=== PATIENT | female | born 1990 | race Caucasian/White ===

== ENCOUNTER 2018-02-04 17:46 | Emergency (ER) | payer OTHER, SELFPAY ==
[2018-02-04 17:55] VITALS: BP 122/74; PULSE 80; RESP 20; TEMP 36.6; O2SAT 99; BMI 25.7
--- NOTE | 2018-02-04 17:56 | ED.GENADULT ---
HPI - General Adult <GEORGE Piña - Last Filed: 02/04/18 22:22> General Chief complaint: Blood/Body fluid exposure Stated complaint: POKED WITH AN ENDOFILE AT WORK Time Seen by Provider: 02/04/18 17:56 History of Present Illness HPI narrative: Healthy 27-year-old female here for complaint of accidental stick to her right thumb with a dental instrument that was used under direct canal on the patient. Patient states that the source patient has no known health problems or communicable diseases. She denies any complaints of pain or other symptoms. She was stuck earlier today accidentally while the instrument was being cleaned. She reports her tetanus is up-to-date. She has received all hepatitis B immunizations and she states that her last titer shows that she has a positive titer. No other concerns or complaints. Review of Systems <GEORGE Piña - Last Filed: 02/04/18 22:22> Constitutional Denies chills, Denies fever(s), Denies lethargy and Denies weakness Eyes Denies change in vision, Denies eye discharge, Denies irritation and Denies loss of vision ENT Ears, Nose, Mouth, and Throat: Denies change in voice, Denies neck pain and Denies sore throat Cardiovascular Denies chest pain, Denies irregular heart rhythm, Denies lightheadedness, Denies palpitations, Denies dyspnea, Denies dyspnea on exertion and Denies orthopnea Respiratory Denies cough, Denies dyspnea, Denies dyspnea on exertion and Denies wheezing Gastrointestinal Gastrointestinal: Denies abdominal pain, Denies change in bowel habits, Denies diarrhea, Denies nausea and Denies vomiting Genitourinary Denies hematuria, Denies flank pain, Denies urinary incontinence and Denies urinary urgency Musculoskeletal Denies neck pain Comments: Accidental needle stick to a right thumb Integumentary/Breasts Denies pruritus, Denies erythema, Denies rash and Denies wounds Neurologic Denies confusion, Denies loss of vision and Denies weakness Psychiatric Denies anxiety, Denies confusion, Denies depression, Denies homicidal ideation and Denies suicidal ideation Endocrine Denies palpitations Hematologic/Lymphatic Denies easy bruising Allergic/Immunologic Denies wheezing Exam <GEORGE Piña - Last Filed: 02/04/18 22:22> Initial Vital Signs Initial Vital Signs: Vital Signs Temperature 97.8 F 07/25/18 17:55 Pulse Rate 80 02/04/18 17:55 Respiratory Rate 20 02/04/18 17:55 Blood Pressure 122/74 H 02/04/18 17:55 Pulse Oximetry 99 02/04/18 17:55 Const General: cooperative and well developed Nutritional Appearance: well nourished Orientation: alert, awake, oriented x3 and not confused HENMT Mouth: oral mucosae normal and moist mucous membranes Eyes Conjunctivae: conjunctivae normal Sclera: sclerae normal Pupils: PERRL EOM: EOM intact bilaterally Resp Effort & Inspection: normal respiratory effort, able to speak in complete sentences, no respiratory distress and no use of accessory muscles Auscultation: clear to auscultation bilaterally, no rales, no rhonchi and no wheezes Cardio Rate: regular rate Rhythm: regular rhythm Heart Sounds: no click, no gallops, no murmurs and no rubs Pulses: normal peripheral pulses Skin General: no rashes or lesions noted, No jaundice and No petechiae Neuro General: alert, oriented x3, gait normal and no focal motor deficits Speech: speech normal Extrem Other: Right thumb with no signs of trauma or puncture wounds <Dodie Bellamy DO - Last Filed: 02/05/18 05:39> Initial Vital Signs Initial Vital Signs: Vital Signs Temperature 97.8 F 02/04/18 17:55 Pulse Rate 80 02/04/18 17:55 Respiratory Rate 20 02/04/18 17:55 Blood Pressure 122/74 H 02/04/18 17:55 Pulse Oximetry 99 02/04/18 17:55 Course <GEORGE Piña - Last Filed: 02/04/18 22:22> Orders Ordered: ED Orders 02/04/18 19:21 HIV 1 and 2 Antibody Stat Hepatitis Acute Panel Stat Hepatitis C Virus Antibody Stat Vital Signs - 8 hr 02/04/18 17:55 02/04/18 20:08 Temperature 97.8 F Pulse Rate 80 77 Respiratory Rate 20 16 Blood Pressure 122/74 H 126/70 H Pulse Oximetry 99 100 <Dodie Bellamy DO - Last Filed: 02/05/18 05:39> Orders Ordered: ED Orders 02/04/18 19:21 HIV 1 and 2 Antibody Stat Hepatitis Acute Panel Stat Hepatitis C Virus Antibody Stat Vital Signs - 8 hr 02/04/18 17:55 02/04/18 20:08 Temperature 97.8 F Pulse Rate 80 77 Respiratory Rate 20 16 Blood Pressure 122/74 H 126/70 H Pulse Oximetry 99 100 Medical Decision Making <GEORGE Piña - Last Filed: 02/04/18 22:22> MDM Narrative Medical decision making narrative: Low risk of contamination as instruments were part way through a being cleansed. Hepatitis titers and HIV titers were obtained here in the emergency room. Patient to follow up with primary care provider or with [facility] for further evaluation and treatment as need be when source information is obtained and also for results of her titers today. For any worsening symptoms return to the emergency room. Lab Data Lab Results 02/04/18 Range/Units 19:21 Hepatitis C Antibody Negative (NEGATIVE) s/c HIV 1&2 Antibody Negative (NEGATIVE) <Dodie Bellamy DO - Last Filed: 02/05/18 05:39> Lab Data Lab Results 02/04/18 Range/Units 19:21 Hepatitis C Antibody Negative (NEGATIVE) s/c HIV 1&2 Antibody Negative (NEGATIVE) Discharge Plan Departure Patient Disposition: Home, Self-Care Clinical Impression: Needlestick injury accident Discharge Date/Time: 02/04/18 20:13 Interventions: ED Discharge Assessment Last Done: 02/04/18 20:08 Instructions: DI for Accidental Exposure to Body Fluids Activity Restrictions/Additional Instructions: Hepatitis titers and HIV titers were obtained today. With information received today believe is low risk for spread or transmission of communicable disease. Follow up with her primary care provider or [facility] for further evaluation and treatment once source of information is obtained and are your results from today are back. For any worsening symptoms return to the emergency room. Referrals: [facility] [Provider Group] <Dodie Bellamy DO - Last Filed: 02/05/18 05:39> Cosign ED Attending Luisaature Attestation: I was immediately available in the department for consultation. Documentation has been reviewed. I agree with assessment and plan.
--- NOTE | 2018-02-04 18:18 | PC.NURSE ---
Pt works at [employer] in [place]. 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 Blood did come from the puncture site. No puncture site visible at this time. Pt brought paperwork from her office to be filled out and pt is filling out L&I paperwork at this time.
[2018-02-04 20:08] VITALS: BP 126/70; PULSE 77; RESP 16; O2SAT 100
[2018-02-04 21:06] LABS: HIV 1 and 2 Antibody NEGATIVE (NEGATIVE); Hep C Virus Ab w/Reflex Quant NEGATIVE s/c (NEGATIVE)
[2018-02-06 15:04] LABS: Hepatitis B Surf Ab Qualitativ Reactive (Nonreactive)
[2018-02-07 10:32] LABS: Hepatitis A Antibody IgM NONREACTIVE; Hepatitis Acute Panel Interp 0.01; Hepatitis B Core Antibody IgM NONREACTIVE; Hepatitis B Surface Antigen NONREACTIVE; Hepatitis C Antibody NONREACTIVE
== END 2018-02-04 20:13 | disposition home or self-care (01) ==
PROVIDERS: Emergency Provider Nurse Practitioner Family
DX: S61.031A Puncture wound without foreign body of right thumb without damage to nail, initial encounter (principal); W27.8XXA Contact with other nonpowered hand tool, initial encounter; Y99.0 Civilian activity done for income or pay
CPT/HCPCS: 36415; 80074; 86703; 86706; 86803; 99282; 99283

== ENCOUNTER 2018-04-24 22:36 | Emergency (ER) | payer OTHER, SELFPAY ==
[2018-04-24 22:53] VITALS: BP 137/76; PULSE 89; RESP 16; TEMP 36.9; O2SAT 100; BMI 25.7
[2018-04-24 23:21] LABS: Add Manual Diff / Slide Review NO; Basophils Percent Auto 0.5 % (0-2); Eosinophils Percent Auto 1.3 % (2-4); Hematocrit 41.1 % (36-46); Hemoglobin 13.8 g/dL (12.0-16.0); Lymphocytes Percent Auto 26.2 % (25-40); Mean Corpuscular HGB Conc 33.4 % (30-36); Mean Corpuscular Hemoglobin 28.9 PG (26-34); Mean Corpuscular Volume 86.4 fL (80-100); Monocytes Percent Auto 8.7 % (3-14); Neutrophils Absolute Auto 6900 /uL (3000-5900); Neutrophils Percent Auto 63.3 % (50-75); Platelet Count 247 X10^3/uL (150-400); Red Blood Cell Count 4.76 X10^6/uL (4.0-5.2); Red Cell Distribution Width 13.1 % (11.6-14.8); White Blood Cell Count 10.8 X10^3/uL (4.5-11.0)
[2018-04-24 23:22] LABS: Alanine Aminotransferase 23 IU/L (9-52); Albumin 4.5 g/dL (3.5-5.0); Albumin Globulin Ratio 1.7 (1.0-2.8); Alkaline Phosphatase 48 U/L (38-126); Aspartate Aminotransferase 29 IU/L (14-36); BUN Creatinine Ratio 18.3 (6-22); Bilirubin Total 0.3 mg/dL (0.2-1.3); Blood Urea Nitrogen 11 mg/dL (7-17); Calcium 9.4 mg/dL (8.4-10.2); Carbon Dioxide 27 mmol/L (22-32); Chloride 104 mmol/L (98-107); Estimated Glomerular Filt Rate > 60.0 mL/min (>60); Globulin 2.7 g/dL (1.7-4.1); Glucose 93 mg/dL (70-100); HEMOLYSIS < 15 (0-50); Potassium 3.4 mmol/L (3.4-5.1); Sodium 141 mmol/L (137-145); Total Protein 7.2 g/dL (6.3-8.2)
--- NOTE | 2018-04-24 23:55 | DI.US.S_ITS ---
PROCEDURE: US PELVIC COMPLETE INDICATIONS: POSITIVE HOME TEST; BLEEDING TECHNIQUE: Real-time scanning was performed of the pelvic organs, with image documentation. Additional endovaginal scanning was necessary due to incomplete visualization of the adnexal and endometrial structures by transabdominal scanning. COMPARISON: None. FINDINGS: Transabdominal scanning: Limited scanning through the kidneys shows no hydronephrosis. No pathologic free abdominal or pelvic fluid. Endovaginal scanning: Uterus: Uterus is normal in size at 8.1 x 3.9 x 4.9 cm. The endometrium measures 10.0 mm in combined thickness. No intrauterine identified. Ovaries: Right adnexa measures 2.8 x 2.0 x 2.8 cm and appears sonographically normal. Left adnexa measures 2.5 x 2.0 x 1.4 cm and appears sonographically normal. IMPRESSION: No source of bleeding identified. No intrauterine identified. Recommend correlation with beta hCG, close clinical observation and short-term followup ultrasound. Dictated by: Samara Manuel MD, PhD on 04/25/2018 at 9:30 Approved by: Samara Manuel MD, PhD on 04/25/2018 at 9:31
--- NOTE | 2018-04-24 23:57 | ED_ITS ---
HPI - General Chief complaint: OB/Uterine Contractions Stated complaint: 5 WKS SPOTTING Time Seen by Provider: 04/24/18 23:49 Source: patient Mode of arrival: ambulatory Limitations: no limitations History of Present Illness HPI Narrative: Patient is a 27-year-old female who presents with vaginal bleeding. She states that she is 5 and half weeks . This is her 1st she started having more than spotting today. Not going through more than 1 pad an hour. She has some mild cramping no significant pain. She denies any dizziness or lightheadedness. She actually has 2 negative urine dipped in the ED. Complaint: vaginal bleeding Related Data Allergies Allergy/AdvReac Type Severity Reaction Status Date / Time No Known Drug Allergies Allergy Verified 04/24/18 22:53 Review of Systems Review of Systems GENERAL: Denies chills, fatigue, malaise, fever, sweats, travel HEENT: Denies sinus pain, ear pain, sore throat, difficulty swallowing, neck pain RESPIRATORY: Denies dyspnea, cough, wheezing, hemoptysis, sputum. CARDIOVASCULAR: Denies chest pain, palpitations, orthopnea, edema GASTROINTESTINAL: Denies nausea, vomiting, abdominal pain, diarrhea, constipation, melena. : Denies dysuria, frequency, incontinence, hematuria, urinary retention, flank pain. 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 12 point review of systems is negative except for those stated above and HPI Exam Initial Vital Signs Initial Vital Signs: Vital Signs Temperature 98.4 F 04/24/18 22:53 Pulse Rate 89 04/24/18 22:53 Respiratory Rate 16 04/24/18 22:53 Blood Pressure 137/76 04/24/18 22:53 Pulse Oximetry 100 04/24/18 22:53 GENERAL: Well-appearing, well-nourished and in no acute distress. HEENT: Head atraumatic,EOMI, pupils reactive, face symmetric CARDIOVASCULAR: Regular rate and rhythm without murmurs, rubs or gallops. RESPIRATORY: Breath sounds equal bilaterally, no wheezes rales or rhonchi. ABDOMEN: Soft, nontender. Normoactive bowel sounds all 4 quadrants. No guarding or rebound. EXTREMITIES: Normal range of motion, no clubbing or edema. Neurovascularly intact NEUROLOGICAL: Alert and oriented x4.Normal gait and speech. SKIN: Warm, dry, no laceration, no petechiae, no rashes or lesions. Course Orders Ordered: ED Orders 04/24/18 23:00 ABO RH Type Stat Complete Blood Count AUTO DIFF Stat Comprehensive Metabolic Panel Stat HCG Quantitative Stat 04/24/18 23:55 US pelvic complete Stat Vital Signs - 8 hr 04/24/18 22:53 04/25/18 00:56 Temperature 98.4 F Pulse Rate 89 73 Respiratory Rate 16 16 Blood Pressure 137/76 Blood Pressure [Left Arm] 129/70 Pulse Oximetry 100 100 MDM - OB/Uterine Contractions Lab Data Attestation: I reviewed the patient's lab results. Result diagrams: 04/24/18 23:00 04/24/18 23:00 Lab Results 04/24/18 04/24/18 04/24/18 Range/Units 23:00 23:00 23:00 WBC 10.8 (4.5-11.0) X10^3/uL RBC 4.76 (4.0-5.2) X10^6/uL Hgb 13.8 (12.0-16.0) g/dL Hct 41.1 (36-46) % MCV 86.4 (80-100) fL MCH 28.9 (26-34) PG MCHC 33.4 (30-36) % RDW 13.1 (11.6-14.8) % Plt Count 247 (150-400) X10^3/uL Neut % (Auto) 63.3 (50-75) % Lymph % (Auto) 26.2 (25-40) % [place] % (Auto) 8.7 (3-14) % Eos % (Auto) 1.3 L (2-4) % Baso % (Auto) 0.5 (0-2) % Neut # (Auto) 6900 H (8635-9281) /uL Sodium 141 (137-145) mmol/L Potassium 3.4 (3.4-5.1) mmol/L Chloride 104 (98-107) mmol/L Carbon Dioxide 27 (22-32) mmol/L BUN 11 (7-17) mg/dL Creatinine 0.60 (0.52-1.04) mg/dL Estimated GFR > 60.0 (>60) mL/min BUN/Creatinine Ratio 18.3 (6-22) Glucose 93 (70-100) mg/dL Calcium 9.4 (8.4-10.2) mg/dL Total Bilirubin 0.3 (0.2-1.3) mg/dL AST 29 (14-36) IU/L ALT 23 (9-52) IU/L Alkaline Phosphatase 48 (38-126) U/L Total Protein 7.2 (6.3-8.2) g/dL Albumin 4.5 (3.5-5.0) g/dL Globulin 2.7 (1.7-4.1) g/dL Albumin/Globulin Ratio 1.7 (1.0-2.8) HCG, Quant 39.40 mIU/mL Blood Type 04/24/18 Range/Units 23:00 WBC (4.5-11.0) X10^3/uL RBC (4.0-5.2) X10^6/uL Hgb (12.0-16.0) g/dL Hct (36-46) % MCV (80-100) fL MCH (26-34) PG MCHC (30-36) % RDW (11.6-14.8) % Plt Count (150-400) X10^3/uL Neut % (Auto) (50-75) % Lymph % (Auto) (25-40) % [place] % (Auto) (3-14) % Eos % (Auto) (2-4) % Baso % (Auto) (0-2) % Neut # (Auto) (6494-4941) /uL Sodium (137-145) mmol/L Potassium (3.4-5.1) mmol/L Chloride (98-107) mmol/L Carbon Dioxide (22-32) mmol/L BUN (7-17) mg/dL Creatinine (0.52-1.04) mg/dL Estimated GFR (>60) mL/min BUN/Creatinine Ratio (6-22) Glucose (70-100) mg/dL Calcium (8.4-10.2) mg/dL Total Bilirubin (0.2-1.3) mg/dL AST (14-36) IU/L ALT (9-52) IU/L Alkaline Phosphatase (38-126) U/L Total Protein (6.3-8.2) g/dL Albumin (3.5-5.0) g/dL Globulin (1.7-4.1) g/dL Albumin/Globulin Ratio (1.0-2.8) HCG, Quant mIU/mL Blood Type O Positive Point of Care Testing Test Results Negative Urine Dip Bedside Urine Glucose Negative Bedside Urine Bilirubin - Negative Bedside Urine Ketone - Negative Urine Specific [place] 1.015 Bedside Urine Occult Blood +/- Bedside Urine pH 8.0 Bedside Urine Protein - Negative Bedside Urine Urobilinogen - Negative Bedside Urine Nitrite - Negative Bedside Urine Leukocytes - Negative Esterase Imaging Data Pelvic ultrasound: 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 The differential diagnosis includes very early , recent spontaneous or ectopic , follow up serial beta HCGs and ultrasound recommended for further evaluation. MDM Narrative Medical decision making narrative: Beta HCG is 39, very low for what patient thinks she is 5 weeks . Ultrasound also does not confirm any pole or gestational sac. I suspect spontaneous inevitable . Her abdomen remained soft and nontender do not suspect ectopic. I discussed all findings with the patient and spouse, Education has been performed regarding treatment plan, diagnosis, warning signs and symptoms and all concerns have been addressed. Verbally agree with and understood all of the above. Discharge Plan Departure Patient Disposition: Home Clinical Impression: , inevitable Discharge Date/Time: 04/25/18 01:24 Interventions: ED Discharge Assessment Last Done: 04/25/18 01:23 Instructions: Dealing With Miscarriage, DI for Miscarriage Activity Restrictions/Additional Instructions: *You have been diagnosed with likely inevitable *What to do: BHCG=39, extremely low, ultrasound did not show signs of . Will need repeat hCG and follow up next week with Ob *Continue to take medications as directed Tylenol or Motrin as directed if needed for pain or cramping *Follow up with your primary care provider in 2-3 days, call OB thing Friday morning to schedule follow-up appointment *Return to ER if you should have increasing pain, vaginal bleeding more than 1 pad an hour, dizziness, lightheadedness or any new, worsening or concerning symptoms Referrals: Rosendo Davis MD [Physician] -
[2018-04-25 00:56] VITALS: BP 129/70; PULSE 73; RESP 16; O2SAT 100
== END 2018-04-25 01:24 | disposition home or self-care (01) ==
PROVIDERS: Emergency Provider Emergency Medicine
DX: O03.9 Complete or unspecified spontaneous abortion without complication (principal); Z3A.01 Less than 8 weeks gestation of pregnancy
CPT/HCPCS: 36591; 76830; 76856; 80053; 81003; 81025; 84702; 85025; 86900; 86901; 99283; 99284

== ENCOUNTER 2018-09-16 23:57 | Emergency (ER) | payer OTHER, SELFPAY ==
[2018-09-17 00:09] VITALS: BP 118/70; PULSE 91; RESP 20; TEMP 36.7; O2SAT 98
[2018-09-17] MEDS: SODIUM CHLORIDE 0.9% 1,000 ML 1000 ML IV ×2 (00:40→01:50)
[2018-09-17 00:45] LABS: Add Manual Diff / Slide Review NO; Basophils Absolute Auto 100 /uL (0-100); Basophils Percent Auto 0.7 % (0-2); Eosinophils Absolute Auto 100 /uL (0-450); Eosinophils Percent Auto 0.7 % (2-4); Hematocrit 45.9 % (36-46); Hemoglobin 15.4 g/dL (12.0-16.0); Lymphocytes Absolute Auto 2300 /uL (1100-4500); Lymphocytes Percent Auto 15.4 % (25-40); Mean Corpuscular HGB Conc 33.6 % (30-36); Mean Corpuscular Hemoglobin 28.7 PG (26-34); Mean Corpuscular Volume 85.5 fL (80-100); Monocytes Absolute Auto 1200 /uL (0-900); Monocytes Percent Auto 7.6 % (3-14); Neutrophils Absolute Auto 11400 /uL (1500-7000); Neutrophils Percent Auto 75.6 % (50-75); Platelet Count 292 X10^3/uL (150-400); Red Blood Cell Count 5.37 X10^6/uL (4.0-5.2); Red Cell Distribution Width 13.3 % (11.6-14.8); White Blood Cell Count 15.1 X10^3/uL (4.5-11.0)
[2018-09-17 00:46] LABS: Alanine Aminotransferase 27 IU/L (9-52); Albumin 4.9 g/dL (3.5-5.0); Albumin Globulin Ratio 1.4 (1.0-2.8); Alkaline Phosphatase 61 U/L (38-126); Aspartate Aminotransferase 19 IU/L (14-36); Bilirubin Total 0.8 mg/dL (0.2-1.3); Blood Urea Nitrogen 12 mg/dL (7-17); Carbon Dioxide 22 mmol/L (22-32); Chloride 100 mmol/L (98-107); Estimated Glomerular Filt Rate > 60.0 mL/min (>60); Globulin 3.6 g/dL (1.7-4.1); Glucose 138 mg/dL (70-100); HEMOLYSIS 15 (0-50); Potassium 3.3 mmol/L (3.4-5.1); Sodium 136 mmol/L (137-145); Total Protein 8.5 g/dL (6.3-8.2)
--- NOTE | 2018-09-17 01:48 | ED.NAVMDI ---
HPI - Nausea/Vomiting/Diarrhea General Chief complaint: Nausea/Vomiting/Diarrhea Stated complaint: 7 weeks , dry heaving, not eating/drinking Time Seen by Provider: 09/17/18 01:48 Source: patient Mode of arrival: ambulatory Limitations: no limitations History of Present Illness HPI Narrative: The patient is , she is in her 1st trimester. She has Zofran at home. However, even with the Zofran she is vomiting frequently for the past 2 days. She has no fever. She denies diarrhea. She denies dizziness, but does feel weak. She denies abdominal pain. She has dysuria. She has no cramping and no vaginal bleeding. Related Data Allergies Allergy/AdvReac Type Severity Reaction Status Date / Time No Known Drug Allergies Allergy Verified 04/24/18 22:53 Review of Systems Review of Systems ROS Unobtainable: All systems reviewed & are unremarkable except as noted in HPI and below Constitutional Denies chills, Denies fever(s), Denies lethargy and Denies weakness Cardiovascular Denies chest pain, Denies irregular heart rhythm, Denies lightheadedness, Denies palpitations, Denies dyspnea, Denies dyspnea on exertion and Denies orthopnea Respiratory Denies cough, Denies dyspnea, Denies dyspnea on exertion and Denies wheezing Gastrointestinal Gastrointestinal: Denies abdominal pain, Denies change in bowel habits, Denies change in stool character, Denies diarrhea, Reports nausea and Reports vomiting Genitourinary Reports as per HPI and Denies dysuria Musculoskeletal Denies back pain Neurologic Denies weakness Endocrine Denies palpitations Allergic/Immunologic Denies wheezing [facility] Medical History No active medical problems (Acute) Surgical History No pertinent past surgical history (Acute) Social History Smoking Status: Never smoker additional social history: No social or home issues. Social History Smoking Status: Never smoker additional social history: No social or home issues. Exam Initial Vital Signs Initial Vital Signs: Vital Signs Temperature 98.0 F 09/17/18 00:09 Pulse Rate 91 H 09/17/18 00:09 Respiratory Rate 20 09/17/18 00:09 Blood Pressure 118/70 09/17/18 00:09 Pulse Oximetry 98 09/17/18 00:09 Const General: cooperative and well developed Nutritional Appearance: well nourished Orientation: alert, awake, oriented x3 and not confused Eyes Conjunctivae: conjunctivae normal (No icterus) Neck Neck: normal visual inspection, trachea midline, No lymphadenopathy, No midline deformity and No JVD Lymphatic: No lymphedema Resp Effort & Inspection: normal respiratory effort, able to speak in complete sentences, no respiratory distress and no use of accessory muscles Auscultation: clear to auscultation bilaterally, no rales, no rhonchi and no wheezes Cardio Rate: regular rate Rhythm: regular rhythm Heart Sounds: no click, no gallops, no murmurs and no rubs Pulses: normal peripheral pulses GI Inspection: non-distended Palpation: soft, no hepatosplenomegaly, No guarding, No pulsatile mass and No tender Auscultation: normal bowel sounds Back/Spine/Pelvis Back: No CVA tenderness Skin General: no rashes or lesions noted Course Course Narrative: The patient has received 2 L of IV fluids for hydration. She did receive IV Zofran. Lab evaluation was benign. She is feeling dramatically better after the IV fluids. She has been managed for hyperemesis gravidarum. She is referred back to her OB doctor tomorrow. Orders Ordered: ED Orders 09/17/18 00:35 Complete Blood Count AUTO DIFF Stat Comprehensive Metabolic Panel Stat Discontinued Medications Sodium Chloride (Normal Saline 0.9%) 1,000 mls @ 1,000 mls/hr IV BOLUS ONE Stop: 09/17/18 01:33 Last Infusion: 09/17/18 01:45 Dose: 1,000 mls/hr Admin: 09/17/18 00:40 Dose: 1,000 mls/hr Sodium Chloride (Normal Saline 0.9%) 1,000 mls @ 1,000 mls/hr IV BOLUS ONE Stop: 09/17/18 02:51 Last Infusion: 09/17/18 03:09 Dose: 1,000 mls/hr Admin: 09/17/18 01:50 Dose: 1,000 mls/hr Ondansetron HCl (Zofran) 4 mg IV NOW ONE Stop: 09/17/18 01:53 Last Admin: 09/17/18 02:06 Dose: 4 mg Vital Signs - 8 hr 09/17/18 03:44 Pulse Rate 72 Respiratory Rate 14 Blood Pressure 112/72 Pulse Oximetry 100 MDM - Nausea/Vomiting/Diarrhea Lab Data Result diagrams: 09/17/18 00:35 09/17/18 00:35 Lab Results 09/17/18 09/17/18 Range/Units 00:35 00:35 WBC 15.1 H (4.5-11.0) X10^3/uL RBC 5.37 H (4.0-5.2) X10^6/uL Hgb 15.4 (12.0-16.0) g/dL Hct 45.9 (36-46) % MCV 85.5 (80-100) fL MCH 28.7 (26-34) PG MCHC 33.6 (30-36) % RDW 13.3 (11.6-14.8) % Plt Count 292 (150-400) X10^3/uL Neut % (Auto) 75.6 H (50-75) % Lymph % (Auto) 15.4 L (25-40) % [place] % (Auto) 7.6 (3-14) % Eos % (Auto) 0.7 L (2-4) % Baso % (Auto) 0.7 (0-2) % Neut # (Auto) 38372 H (5555-9295) /uL Lymph # (Auto) 2300 (9417-2121) /uL [place] # (Auto) 1200 H (0-900) /uL Eos # (Auto) 100 (0-450) /uL Baso # (Auto) 100 (0-100) /uL Sodium 136 L (137-145) mmol/L Potassium 3.3 L (3.4-5.1) mmol/L Chloride 100 (98-107) mmol/L Carbon Dioxide 22 (22-32) mmol/L BUN 12 (7-17) mg/dL Creatinine 0.80 (0.52-1.04) mg/dL Estimated GFR > 60.0 (>60) mL/min BUN/Creatinine Ratio 15.0 (6-22) Glucose 138 H (70-100) mg/dL Calcium 10.0 (8.4-10.2) mg/dL Total Bilirubin 0.8 (0.2-1.3) mg/dL AST 19 (14-36) IU/L ALT 27 (9-52) IU/L Alkaline Phosphatase 61 (38-126) U/L Total Protein 8.5 H (6.3-8.2) g/dL Albumin 4.9 (3.5-5.0) g/dL Globulin 3.6 (1.7-4.1) g/dL Albumin/Globulin Ratio 1.4 (1.0-2.8) Urine Dip Bedside Urine Glucose Negative Bedside Urine Bilirubin - Negative Bedside Urine Ketone + 15 Urine Specific [place] 1.025 Bedside Urine Occult Blood - Negative Bedside Urine pH 6.0 Bedside Urine Protein +/- 15 Bedside Urine Urobilinogen - Negative Bedside Urine Nitrite - Negative Bedside Urine Leukocytes - Negative Esterase Discharge Plan Departure Patient Disposition: Home Clinical Impression: Hyperemesis gravidarum Discharge Date/Time: 09/17/18 03:27 Interventions: ED Discharge Assessment Last Done: 09/17/18 03:44 Instructions: Hyperemesis Gravidarum Activity Restrictions/Additional Instructions: Drink plenty of fluids. I would recommend a bland diet. Avoid foods that tend to make you nauseated. Zofran every 4 hr as needed for nausea. Follow-up with her doctor tomorrow as planned. Return here as needed.
[2018-09-17] MEDS: ONDANSETRON 4 MG/2 ML INJ IV (02:06)
[2018-09-17 03:44] VITALS: BP 112/72; PULSE 72; RESP 14; O2SAT 100
== END 2018-09-17 03:27 | disposition home or self-care (01) ==
PROVIDERS: Emergency Provider Emergency Medicine
DX: O21.0 Mild hyperemesis gravidarum (principal)
CPT/HCPCS: 36415; 36591; 80053; 81003; 85025; 96361; 96374; 99283; 99284; J2405

== ENCOUNTER → 2018-09-28 16:04 | Outpatient (CLI) | payer OTHER, SELFPAY ==
--- NOTE | 2018-09-28 | DI.US.S_ITS ---
PROCEDURE: US OB <= 14 WEEKS FETUS INDICATIONS: INITIAL SIZING AND DATING OUTSIDE/PRIOR DATING DATA: Last menstrual period (LMP): 07/29/18 LMP-based estimated date of delivery (MELISSA): 05/05/19 First dating scan (date and location): This study, 09/28/18. . Estimated date of delivery (MELISSA) from first dating scan: 05/07/19. TECHNIQUE: Real-time scanning was performed of the fetus and maternal pelvic organs, with image documentation. Endovaginal scanning was also performed to better visualize the fetus and maternal ovaries. COMPARISON: None. FINDINGS: Embryo: [place]-rump length 1.9 cm, 8 week 3 day gestation, heart rate 175 beats per minute. Measurement variability in dating: +/- 4 weeks by LMP, +/- 7 days by mean sac diameter (use before 6 weeks gestation if crown-rump length not able to be measured), +/- 5 days by crown-rump length (up to 8 weeks 6 days gestation), +/- 7 days by crown-rump length (up to 13 weeks 6 days gestation). Maternal organs: Ovaries normal considering gestational status. Limited images through the kidneys demonstrate no hydronephrosis. IMPRESSION: Early first trimester gestation, a weeks 3 days gestational age, delivery date projected to be centered on 05/07/19, plus or -5 days. Followup anatomic survey at approximately 21 weeks gestation is recommended. Dictated by: Kirill Rosen M.D. on 09/28/2018 at 16:28 Approved by: Kirill Rosen M.D. on 09/28/2018 at 16:30
== END ==
PROVIDERS: PCP Family Medicine; Visit Provider Family Medicine
DX: Z34.91 Encounter for supervision of normal pregnancy, unspecified, first trimester (principal); Z3A.08 8 weeks gestation of pregnancy
CPT/HCPCS: 76801

== ENCOUNTER 2018-09-28 16:53 | Emergency (ER) | payer OTHER, SELFPAY ==
[2018-09-28 17:03] VITALS: BP 122/86; PULSE 74; RESP 16; TEMP 37.2; O2SAT 99; BMI 26.4
--- NOTE | 2018-09-28 20:55 | ED.NAVMDI ---
HPI - Nausea/Vomiting/Diarrhea General Chief complaint: Nausea/Vomiting/Diarrhea Stated complaint: 8wks preg, not keeping food down Time Seen by Provider: 09/28/18 20:49 Source: patient Mode of arrival: ambulatory Limitations: no limitations History of Present Illness HPI Narrative: Patient is a at approximately 8 weeks EGA. Has a known IUP which she reported. Had an ultrasound this morning at her primary doctor's office for dating. States that since she has become she has had nausea and vomiting. Has Zofran at home which she has run out of iris she states it was not helping. Has been taking Reglan for the past week without much improvement either. Vomited multiple times in the waiting room no vaginal bleeding. No abdominal pain. No loss of fluid. Related Data Previous Rx's Medication Instructions Recorded promethazine 25 mg PO Q4-6H PRN #14 tab 09/29/18 Allergies Allergy/AdvReac Type Severity Reaction Status Date / Time No Known Drug Allergies Allergy Verified 09/28/18 17:03 Review of Systems Constitutional Denies fever(s) and Denies headache(s) ENT Ears, Nose, Mouth, and Throat: Denies headache(s) Cardiovascular Denies chest pain and Denies dyspnea Respiratory Denies dyspnea Gastrointestinal Gastrointestinal: Denies abdominal pain, Denies change in stool character, Reports nausea and Reports vomiting Genitourinary Denies dysuria and Denies urinary urgency Musculoskeletal Denies myalgias and Denies arthralgias Integumentary/Breasts Denies rash Neurologic Denies headache(s) Hematologic/Lymphatic Denies easy bleeding and Denies easy bruising PFSH Medical History No active medical problems (Acute) Surgical History No pertinent past surgical history (Acute) Social History Smoking Status: Never smoker additional social history: No social or home issues. Social History Smoking Status: Never smoker additional social history: No social or home issues. Exam Initial Vital Signs Initial Vital Signs: Vital Signs Temperature 98.9 F 09/28/18 17:03 Pulse Rate 74 09/28/18 17:03 Respiratory Rate 16 09/28/18 17:03 Blood Pressure 122/86 09/28/18 17:03 Pulse Oximetry 99 09/28/18 17:03 Const General: cooperative, healthy appearing, comfortable, well developed, well groomed and No acute distress Orientation: alert, awake and oriented x3 Resp Effort & Inspection: normal respiratory effort Cardio Rate: regular rate Rhythm: regular rhythm Skin Lesions: no lesions Rashes: no rashes Neuro General: alert, awake and oriented x3 Extrem General: normal to inspection and capillary refill normal Psych Appearance: grossly normal and well kempt Course Orders Ordered: ED Orders 09/28/18 20:55 Complete Blood Count AUTO DIFF Stat Comprehensive Metabolic Panel Stat Lipase Stat 09/28/18 22:20 Urine Culture Stat Urine Microscopic Stat Promethazine HCl (Phenergan 25 Mg Prepack) 1 bottle MISC SEEINSTR ONE Stop: 09/29/18 00:15 Discontinued Medications Sodium Chloride (Normal Saline 0.9%) 1,000 mls @ 1,000 mls/hr IV BOLUS ONE Stop: 09/28/18 21:54 Last Infusion: 09/28/18 21:42 Dose: 0 mls/hr Admin: 09/28/18 20:59 Dose: 1,000 mls/hr Sodium Chloride (Normal Saline 0.9%) 1,000 mls @ 1,000 mls/hr IV BOLUS ONE Stop: 09/28/18 21:55 Last Infusion: 09/28/18 22:45 Dose: 0 mls/hr Admin: 09/28/18 21:44 Dose: 1,000 mls/hr Ondansetron HCl (Zofran) 4 mg IV NOW ONE Stop: 09/28/18 20:57 Last Admin: 09/28/18 20:59 Dose: 4 mg Promethazine HCl (Phenergan) 25 mg PO NOW ONE Stop: 09/28/18 21:59 Last Admin: 09/28/18 23:46 Dose: 25 mg Vital Signs - 8 hr 09/28/18 17:03 09/28/18 21:00 09/28/18 22:21 Temperature 98.9 F Pulse Rate 74 88 68 Respiratory Rate 16 14 16 Blood Pressure 122/86 Blood Pressure [Left Arm] 138/80 120/67 Pulse Oximetry 99 99 100 09/28/18 23:00 09/29/18 00:00 Temperature Pulse Rate 72 85 Respiratory Rate 16 16 Blood Pressure Blood Pressure [Left Arm] 102/61 105/61 Pulse Oximetry 100 100 MDM - Nausea/Vomiting/Diarrhea Lab Data Attestation: I reviewed the patient's lab results. Result diagrams: 09/28/18 20:55 09/28/18 20:55 Lab Results 09/28/18 09/28/18 09/28/18 Range/Units 20:55 20:55 22:20 WBC 14.6 H (4.5-11.0) X10^3/uL RBC 4.99 (4.0-5.2) X10^6/uL Hgb 14.4 (12.0-16.0) g/dL Hct 42.8 (36-46) % MCV 85.8 (80-100) fL MCH 28.9 (26-34) PG MCHC 33.6 (30-36) % RDW 13.1 (11.6-14.8) % Plt Count 259 (150-400) X10^3/uL Neut % (Auto) 73.8 (50-75) % Lymph % (Auto) 18.1 L (25-40) % [place] % (Auto) 7.3 (3-14) % Eos % (Auto) 0.2 L (2-4) % Baso % (Auto) 0.6 (0-2) % Neut # (Auto) 99436 H (1259-0680) /uL Lymph # (Auto) 2600 (5560-8729) /uL [place] # (Auto) 1100 H (0-900) /uL Eos # (Auto) 0 (0-450) /uL Baso # (Auto) 100 (0-100) /uL Sodium 136 L (137-145) mmol/L Potassium 3.4 (3.4-5.1) mmol/L Chloride 101 (98-107) mmol/L Carbon Dioxide 17 L (22-32) mmol/L BUN 10 (7-17) mg/dL Creatinine 0.60 (0.52-1.04) mg/dL Estimated GFR > 60.0 (>60) mL/min BUN/Creatinine Ratio 16.7 (6-22) Glucose 75 (70-100) mg/dL Calcium 9.6 (8.4-10.2) mg/dL Total Bilirubin 0.8 (0.2-1.3) mg/dL AST 22 (14-36) IU/L ALT 25 (9-52) IU/L Alkaline Phosphatase 47 (38-126) U/L Total Protein 8.2 (6.3-8.2) g/dL Albumin 4.7 (3.5-5.0) g/dL Globulin 3.5 (1.7-4.1) g/dL Albumin/Globulin Ratio 1.3 (1.0-2.8) Lipase 411 H (23-300) U/L Urine RBC 0-1/hpf (0-5/HPF) Urine WBC 0-1/hpf (0-5/HPF) Ur Squamous Epith Cells 1-5 /hpf Urine Bacteria Many (>30) H (None) Urine Mucus 1+ H (Negative) Ur Culture Indicated? Cult not indicated Urine Dip Bedside Urine Glucose Negative Bedside Urine Bilirubin - Negative Bedside Urine Ketone +++ 80 Urine Specific [place] 1.030 Bedside Urine Occult Blood - Negative Bedside Urine pH 6.0 Bedside Urine Protein + 30 Bedside Urine Urobilinogen +/- 1mg Bedside Urine Nitrite - Negative Bedside Urine Leukocytes - Negative Esterase MDM Narrative Medical decision making narrative: White count of 14 however no signs of infection. I suspect that this is secondary to a stress response from all the vomiting. She does have bacteria in the urine however no signs of a urinary tract infection. The urine was cultured. Will wait on the culture results before treating with any antibiotics. I did discuss this with the patient who expressed understanding and agreement. She was given Zofran through the IV and 2 L of fluid. She states she did feel somewhat better. She was able to hold down oral Phenergan. She states that this really did not help much of her nausea but has not vomited for several hours since being back in the emergency department. I informed her that these medications are more to help her with the vomiting and may not get rid of the nausea completely. Will send home with prescription for Phenergan. Informed her to contact her primary doctor for follow-up. She was given return precautions. She expressed understanding and agreement with plan. Discharge Plan Departure Patient Disposition: Home Clinical Impression: Hyperemesis gravidarum Instructions: DI for Hyperemesis Gravidarum Activity Restrictions/Additional Instructions: Continue to take small amounts of fluid over a long period of time. Contact your OB provider for follow-up. Return to the emergency department for any new or worsening symptoms Prescriptions: New promethazine 25 mg tablet 25 mg PO Q4-6H PRN (Reason: nausea and vomiting) Qty: 14 RF: 0 Referrals: Rosendo Davis MD [Primary Care Provider] -
[2018-09-28] MEDS: ONDANSETRON 4 MG/2 ML INJ IV (20:59)
[2018-09-28] MEDS: SODIUM CHLORIDE 0.9% 1,000 ML 1000 ML IV ×2 (20:59→21:44)
[2018-09-28 21:00] VITALS: BP 138/80; PULSE 88; RESP 14; O2SAT 99
[2018-09-28 21:02] LABS: Add Manual Diff / Slide Review NO; Basophils Absolute Auto 100 /uL (0-100); Basophils Percent Auto 0.6 % (0-2); Eosinophils Absolute Auto 0 /uL (0-450); Eosinophils Percent Auto 0.2 % (2-4); Hematocrit 42.8 % (36-46); Hemoglobin 14.4 g/dL (12.0-16.0); Lymphocytes Absolute Auto 2600 /uL (1100-4500); Lymphocytes Percent Auto 18.1 % (25-40); Mean Corpuscular HGB Conc 33.6 % (30-36); Mean Corpuscular Hemoglobin 28.9 PG (26-34); Mean Corpuscular Volume 85.8 fL (80-100); Monocytes Absolute Auto 1100 /uL (0-900); Monocytes Percent Auto 7.3 % (3-14); Neutrophils Absolute Auto 10800 /uL (1500-7000); Neutrophils Percent Auto 73.8 % (50-75); Platelet Count 259 X10^3/uL (150-400); Red Blood Cell Count 4.99 X10^6/uL (4.0-5.2); Red Cell Distribution Width 13.1 % (11.6-14.8); White Blood Cell Count 14.6 X10^3/uL (4.5-11.0)
[2018-09-28 21:14] LABS: Alanine Aminotransferase 25 IU/L (9-52); Albumin 4.7 g/dL (3.5-5.0); Albumin Globulin Ratio 1.3 (1.0-2.8); Alkaline Phosphatase 47 U/L (38-126); Aspartate Aminotransferase 22 IU/L (14-36); BUN Creatinine Ratio 16.7 (6-22); Bilirubin Total 0.8 mg/dL (0.2-1.3); Blood Urea Nitrogen 10 mg/dL (7-17); Calcium 9.6 mg/dL (8.4-10.2); Carbon Dioxide 17 mmol/L (22-32); Chloride 101 mmol/L (98-107); Estimated Glomerular Filt Rate > 60.0 mL/min (>60); Globulin 3.5 g/dL (1.7-4.1); Glucose 75 mg/dL (70-100); HEMOLYSIS < 15 (0-50); Lipase 411 U/L (23-300); Potassium 3.4 mmol/L (3.4-5.1); Sodium 136 mmol/L (137-145); Total Protein 8.2 g/dL (6.3-8.2)
[2018-09-28 22:21] VITALS: BP 120/67; PULSE 68; RESP 16; O2SAT 100
[2018-09-28 23:00] VITALS: BP 102/61; PULSE 72; RESP 16; O2SAT 100
[2018-09-28 23:14] LABS: RBC Urine 0-1/HPF (0-5/HPF); Squamous Epithelial Cell Urine 1-5 /HPF; WBC Urine 0-1/HPF (0-5/HPF)
[2018-09-28 23:15] LABS: Bacteria Urine Many (>30); Culture Indicated Urine Cult Not Indicated; Mucus Urine 1+ (Negative)
[2018-09-28] MEDS: PROMETHAZINE 25 MG TABLET PO (23:46)
[2018-09-29] VITALS: BP 105/61; PULSE 85; RESP 16; O2SAT 100
[2018-09-29] MEDS: PROMETHAZINE 25 MG PREPACK 1 BOTTLE MISC (00:29)
== END 2018-09-29 00:37 | disposition home or self-care (01) ==
PROVIDERS: Emergency Provider Emergency Medicine; PCP Family Medicine
DX: O21.0 Mild hyperemesis gravidarum (principal); Z3A.08 8 weeks gestation of pregnancy
CPT/HCPCS: 36591; 76801; 80053; 81003; 81015; 83690; 85025; 87086; 96361; 96374; 99284; J2405

== ENCOUNTER 2018-10-02 16:29 | Observation (INO) | payer OTHER, SELFPAY ==
--- NOTE | 2018-10-02 17:30 | PC.NURSE ---
Dr. Cisneros started a 20G IV in pt's R hand.
[2018-10-02] MEDS: LACTATED RINGERS 1,000 ML 1000 ML IV ×2 (17:40→18:45)
--- NOTE | 2018-10-02 18:30 | PC.NURSE ---
Pt's first IV of LR infused. Dr. Davis notified and that pt was still and always nauseated, but feeling better. Orders received for an additional liter of LR then to discharge home.
[2018-10-02 19:00] VITALS: BP 119/65; PULSE 83; RESP 16; TEMP 37.7
[2018-10-02 20:12] VITALS: BP 122/74; PULSE 72; RESP 16; TEMP 37.3
--- NOTE | 2018-11-27 13:12 | PM.OBTRLD ---
Visit Information Visit Information Date of evaluation: 09/29/18 Primary OB Provider: Rosendo Davis Comments/Additional reasons for admission: Patient presents with hyperemesis gravidarum. Unable to keep anything down. Oral medications are failing. Needs IV hydration Vital Signs Vital Signs: Fatigued appearing female pale PFSH Medical History (Updated 10/02/18 @ 00:00 by ) No active medical problems (Acute) Surgical History (Updated 09/17/18 @ 08:58 by Rosendo Echevarria MD) No pertinent past surgical history (Acute) Social History (Updated 09/17/18 @ 08:59 by Rosendo Echevarria MD) Smoking Status: Never smoker additional social history: No social or home issues. Social History (Updated 09/17/18 @ 08:59 by Rosendo Echevarria MD) Smoking Status: Never smoker additional social history: No social or home issues. Diagnosis, Plan/Disposition Plan/Disposition Plan: Off IV hydration. IV medication Zofran discharged to home
== END 2018-10-02 20:23 | disposition home or self-care (01) ==
LOC: LABOR 16:31
PROVIDERS: Admitting Provider Family Medicine; PCP Family Medicine; Visit Provider Family Medicine
DX: O21.0 Mild hyperemesis gravidarum (principal); Z3A.11 11 weeks gestation of pregnancy
CPT/HCPCS: 96360; 96361; G0378; G0379

== ENCOUNTER 2018-10-16 13:32 | Observation (INO) | payer OTHER, SELFPAY ==
[2018-10-16] MEDS: LACTATED RINGERS 1,000 ML, LACTATED RINGERS 1,000 ML 999 ML IV (14:10)
== END 2018-10-16 17:15 | disposition home or self-care (01) ==
PROVIDERS: Admitting Provider Family Medicine; PCP Family Medicine; Visit Provider Family Medicine
DX: O21.0 Mild hyperemesis gravidarum (principal)
CPT/HCPCS: G0378; G0379

== ENCOUNTER → 2018-12-18 15:13 | Outpatient (CLI) | payer OTHER, SELFPAY ==
--- NOTE | 2018-12-18 | DI.US.S_ITS ---
PROCEDURE: US OB >= 14 WEEKS FETUS INDICATIONS: 20 WEEK ANATOMY OUTSIDE/PRIOR DATING DATA: Last menstrual period (LMP): 07/29/18. LMP-based estimated date of delivery (MELISSA): 05/05/19. First dating scan (date and location): 09/28/18. Estimated date of delivery (MELISSA) from first dating scan: 05/07/19. TECHNIQUE: Real-time scanning was performed of the fetus, with image documentation and biometric measurements. COMPARISON: [facility], OB <= 14 WEEKS FETUS, 09/28/2018, 16:28. FINDINGS: General: A single living intrauterine gestation is present. Presentation: Transverse. Placenta: Placental position is posterior, appearing low lying/borderline previa approximately 1.2 cm from internal os. Amniotic fluid index: 6.1 cm, normal range is 5-24 cm. heart rate: 139 beats per minute. Maternal cervical canal: 4.4 cm long. Normal lower limit is 2.5 cm. biometrics: Biparietal diameter: 4.5 cm 19 weeks 4 days Head circumference: 17.4 cm 20 weeks zero days Abdominal circumference: 13.8 cm 19 weeks one day Femur length: 2.8 cm 18 weeks 4 days Estimated gestational age from initial scan: 20 weeks zero days Composite gestational age from present scan: 19 weeks 2 days Estimated weight and percentile: 268 g, 7th percentile Measurement variability for biometric dating: +/- 7 days from 14 weeks to 15 weeks 6 days gestation, +/- 10 days from 16 weeks to 21 weeks 6 days gestation, +/- 2 weeks from 22 weeks to 27 weeks 6 days gestation, +/- 3 weeks for 28 weeks gestation or later. weight reference: 4500 g or EFW >90/95% is considered macrosomia or large for gestational age. EFW <10% is small for gestational age. EFW 5% or less is considered intra-uterine growth restriction. Anatomic survey: Neuro: Ventricles are non-dilated at less than 10 mm. Cisterna magna is normal at 3-11 mm. Cerebellum is normal in size and morphology. Nuchal skin fold: Normal at less than 6 mm between 14-21 weeks gestational age. Face: Nose and lips, facial profile are normal. Spine: No evidence for spina bifida. Heart: 4-chambered heart and outflow tracts are not well visualized. Diaphragm: Diaphragm is intact. Stomach: Left-sided stomach is present. Kidneys: No hydronephrosis. Normal is less than 5 mm in 2nd trimester, less than 7 mm in 3rd trimester. Cord: 3-vessel cord has orthotopic insertion. Bladder: Normal in size. Extremities: All 4 extremities identified. IMPRESSION: 1. Single live intrauterine with ultrasound gestational age today is 19 weeks 2 days compared to 20 weeks zero days initial ultrasound. 2. Estimated weight is at the 7th percentile consistent with IUGR. Continued short interval imaging followup is recommended. 3. LÁZARO is measured at 6.1 cm. This is borderline low particularly given the early gestational age. Continued short interval imaging followup is recommended. Dictated by: Kalie Valdez M.D. on 12/18/2018 at 16:59 Approved by: Kalie Valdez M.D. on 12/18/2018 at 17:03
== END ==
PROVIDERS: PCP Family Medicine; Visit Provider Family Medicine
DX: Z36.89 Encounter for other specified antenatal screening (principal); O36.5920 Maternal care for other known or suspected poor fetal growth, second trimester, not applicable or unspecified; Z3A.19 19 weeks gestation of pregnancy
CPT/HCPCS: 76811

== ENCOUNTER → 2019-01-21 16:30 | Outpatient (CLI) | payer OTHER, SELFPAY ==
--- NOTE | 2019-01-21 | DI.US.S_ITS ---
PROCEDURE: US OB >= 14 WEEKS FETUS INDICATIONS: UTERINE SIZE OUTSIDE/PRIOR DATING DATA: Last menstrual period (LMP): 07/29/18. LMP-based estimated date of delivery (MELISSA): 05/05/19. First dating scan (date and location): 09/28/18. Estimated date of delivery (MELISSA) from first dating scan: 05/07/19. TECHNIQUE: Real-time scanning was performed of the fetus, with image documentation and biometric measurements. COMPARISON: [facility], OB <= 14 WEEKS FETUS, 09/28/2018, 16:28. [facility], OB >= 14 WEEKS FETUS, 12/18/2018, 15:39. FINDINGS: General: A single live intrauterine gestation is present. Presentation: Breech. Placenta: Placental position is low lying, without previa. The inferior aspect of the placenta is seen approximately 2.5 cm from the internal cervical os. Multiple placental lakes are seen. Amniotic fluid index: 11.1 cm, normal range is 5-24 cm. heart rate: 143 beats per minute. Maternal cervical canal: 320 cm long. Normal lower limit is 2.5 cm. biometrics: Biparietal diameter: 5.9 cm equals 24 weeks 0 days Head circumference: 21.9 cm equals 24 weeks 0 days Abdominal circumference: 20.2 cm equals 24 weeks 6 days Femur length: 4.2 cm equals 23 weeks 6 days Estimated gestational age from initial scan: 24 weeks 6 days Composite gestational age from present scan: 24 weeks 1 day Estimated weight and percentile: 684 g, 20th percentile Measurement variability for biometric dating: +/- 7 days from 14 weeks to 15 weeks 6 days gestation, +/- 10 days from 16 weeks to 21 weeks 6 days gestation, +/- 2 weeks from 22 weeks to 27 weeks 6 days gestation, +/- 3 weeks for 28 weeks gestation or later. weight reference: 4500 g or EFW >90/95% is considered macrosomia or large for gestational age. EFW <10% is small for gestational age. EFW 5% or less is considered intra-uterine growth restriction. Anatomy: The left ventricular outflow tract is not well-seen, secondary to position. IMPRESSION: The fetus is now estimated at the 20th percentile for weight. Low-lying placenta, without previa. Dictated by: Raulito Garay M.D. on 01/23/2019 at 9:46 Approved by: Raulito Garay M.D. on 01/23/2019 at 9:50
== END ==
PROVIDERS: PCP Family Medicine; Visit Provider Family Medicine
DX: O36.5920 Maternal care for other known or suspected poor fetal growth, second trimester, not applicable or unspecified (principal); Z3A.24 24 weeks gestation of pregnancy
CPT/HCPCS: 76811; 76815

== ENCOUNTER → 2019-03-11 14:11 | Outpatient (CLI) | payer OTHER, SELFPAY ==
--- NOTE | 2019-03-11 | DI.US.S_ITS ---
PROCEDURE: US OB LIMITED INDICATIONS: 30 WEEK US, GEST DM, SIZE>DATES OUTSIDE/PRIOR DATING DATA: Last menstrual period (LMP): 07/29/2018. LMP-based estimated date of delivery (MELISSA): 05/05/2019. First dating scan (date and location): 09/28/2018. Estimated date of delivery (MELISSA) from first dating scan: 05/07/2019. TECHNIQUE: Real-time scanning was performed of the fetus, with image documentation and biometric measurements. COMPARISON: Renal ultrasound 01/21/2019. FINDINGS: General: A single living intrauterine gestation is present. Presentation: Vertex. Placenta: Placental position is posterior, without previa. Amniotic fluid index: 17.3 cm, normal range is 5-24 cm. heart rate: 147 beats per minute. Maternal cervical canal: Not well-seen. biometrics: Biparietal diameter: 30 weeks 4/7 days Head circumference: 30 weeks 6/7 days Abdominal circumference: 30 weeks 5/7 days Femur length: 30 weeks 0/7 days Estimated gestational age from initial scan: 31 weeks 6/7 days Composite gestational age from present scan: 30 weeks 2/7 days Estimated weight and percentile: 1590 g. 9th percentile. Measurement variability for biometric dating: +/- 7 days from 14 weeks to 15 weeks 6 days gestation, +/- 10 days from 16 weeks to 21 weeks 6 days gestation, +/- 2 weeks from 22 weeks to 27 weeks 6 days gestation, +/- 3 weeks for 28 weeks gestation or later. weight reference: 4500 g or EFW >90/95% is considered macrosomia or large for gestational age. EFW <10% is small for gestational age. EFW 5% or less is considered intra-uterine growth restriction. IMPRESSION: 1. Pham living intrauterine at 30 weeks 2/7 days based on today's ultrasound biometry. This remains concordant with the first trimester ultrasound. There is interval growth. The fetus is small in the 9th percentile for weight. 2. Normal amniotic fluid. The placental edge and cervix are not well-seen. Low lying placenta was previously seen. Dictated by: Georges Chakraborty M.D. on 03/11/2019 at 15:51 Approved by: Georges Chakraborty M.D. on 03/11/2019 at 16:00
== END ==
PROVIDERS: PCP Family Medicine; Visit Provider Family Medicine
DX: O24.419 Gestational diabetes mellitus in pregnancy, unspecified control (principal); O36.5930 Maternal care for other known or suspected poor fetal growth, third trimester, not applicable or unspecified; Z3A.30 30 weeks gestation of pregnancy
CPT/HCPCS: 76815

== ENCOUNTER → 2019-04-08 16:49 | Outpatient (ROUT) | payer OTHER, SELFPAY | PROVIDERS: PCP Family Medicine; Visit Provider Family Medicine | DX: Z34.90 Encounter for supervision of normal pregnancy, unspecified, unspecified trimester (principal) | CPT/HCPCS: 87081 ==

== ENCOUNTER → 2019-04-14 11:59 | Outpatient (CLI) | payer OTHER, SELFPAY ==
--- NOTE | 2019-04-14 | DI.US.S_ITS ---
PROCEDURE: US OB LIMITED INDICATIONS: SIZE LESS THAN DATES OUTSIDE/PRIOR DATING DATA: Last menstrual period (LMP): 07/29/2018. LMP-based estimated date of delivery (MELISSA): 05/05/2019. First dating scan (date and location): 09/28/2018. Estimated date of delivery (MELISSA) from first dating scan: 05/07/2019. TECHNIQUE: Real-time scanning was performed of the fetus, with image documentation and biometric measurements. Endovaginal scanning: Not obtained COMPARISON: [facility], OB >= 14 WEEKS FETUS, 01/21/2019, 16:46. Merged with [facility], OB LIMITED, 03/11/2019, 14:27. FINDINGS: General: A single living intrauterine gestation is present. Presentation: Vertex. Placenta: Placental position is left posterior frontal, without previa. Amniotic fluid index: 6.9 cm, normal range is 5-24 cm; the largest pocket 3.7 cm. heart rate: 120 beats per minute. Maternal cervical canal: Not visualized biometrics: Biparietal diameter: 33 weeks 6 days Head circumference: 34 weeks 5 days Abdominal circumference: 34 weeks 2 days Femur length: 34 weeks 0 day Estimated gestational age from initial scan: 36 weeks 5 days. Composite gestational age from present scan: 34 weeks 2 days Estimated weight and percentile: 2371 gm; at the 6th percentile Measurement variability for biometric dating: +/- 7 days from 14 weeks to 15 weeks 6 days gestation, +/- 10 days from 16 weeks to 21 weeks 6 days gestation, +/- 2 weeks from 22 weeks to 27 weeks 6 days gestation, +/- 3 weeks for 28 weeks gestation or later. weight reference: 4500 g or EFW >90/95% is considered macrosomia or large for gestational age. EFW <10% is small for gestational age. EFW 5% or less is considered intra-uterine growth restriction. IMPRESSION: 1. A single living intrauterine gestation with an estimated gestational age of 36 weeks 5 days based on the initial ultrasound. Interval growth is at the lower end of normal. The estimated weight is at the 6th percentile for gestational age. 2. LÁZARO 6.9 cm. 3. Cervix is not visualized. Dictated by: Yael Taylor M.D. on 04/15/2019 at 11:45 Approved by: Yael Taylor M.D. on 04/15/2019 at 11:53
== END ==
PROVIDERS: PCP Family Medicine; Visit Provider Family Medicine
DX: O36.5930 Maternal care for other known or suspected poor fetal growth, third trimester, not applicable or unspecified (principal); Z3A.36 36 weeks gestation of pregnancy
CPT/HCPCS: 76815

== ENCOUNTER 2019-04-21 15:44 | Outpatient (CLI) | payer OTHER, SELFPAY | END 2019-04-21 16:38 | disposition home or self-care (01) | LOC: OB 04-26 15:01 | PROVIDERS: PCP Family Medicine; Visit Provider Family Medicine | DX: O26.23 Pregnancy care for patient with recurrent pregnancy loss, third trimester (principal); Z3A.38 38 weeks gestation of pregnancy | CPT/HCPCS: 59025; G0378; G0379 ==

== ENCOUNTER 2019-04-27 18:50 | Inpatient (IN) | payer OTHER, SELFPAY ==
[2019-04-27] MEDS: miSOPROStol 25 MCG TABLET VAG (21:25)
[2019-04-27 22:01] LABS: Add Manual Diff / Slide Review NO; Basophils Absolute Auto 0 /uL (0-100); Basophils Percent Auto 0.3 % (0-2); Eosinophils Absolute Auto 100 /uL (0-450); Eosinophils Percent Auto 0.7 % (2-4); Hematocrit 35.5 % (36-46); Hemoglobin 11.4 g/dL (12.0-16.0); Lymphocytes Absolute Auto 2500 /uL (1100-4500); Mean Corpuscular Hemoglobin 25.8 PG (26-34); Mean Corpuscular Volume 80.6 fL (80-100); Monocytes Absolute Auto 1100 /uL (0-900); Neutrophils Absolute Auto 9900 /uL (1500-7000); Platelet Count 181 X10^3/uL (150-400); Red Blood Cell Count 4.41 X10^6/uL (4.0-5.2); Red Cell Distribution Width 14.7 % (11.6-14.8); White Blood Cell Count 13.6 X10^3/uL (4.5-11.0)
[2019-04-27] MEDS: ZOLPIDEM 5 MG TABLET PO (22:49)
[2019-04-27 22:52] VITALS: BP 128/84
[2019-04-28] MEDS: LACTATED RINGERS 1,000 ML 100 ML IV ×2 (01:52→10:44)
[2019-04-28] MEDS: miSOPROStol 25 MCG TABLET VAG (02:25)
[2019-04-28] MEDS: OXYTOCIN PREMIX 30 UNIT/500 ML PLAST..BAG IV (07:01)
--- NOTE | 2019-04-28 08:08 | PM.OBHP.1 ---
OB HPI Date/Time Date of admission: 04/28/19 Date Patient Seen: 04/28/19 Time Patient Seen: 08:08 History of Present Condition Chief complaint: : 1 Para: 0 Estimated Date of Delivery: 05/05/19 Estimated Gestational Age (weeks): 39 Narrative: Aaron Landaverde is a 28 year old female with EDC of 05/05/19 with good dates who presents for induction for SGA and diet-controlled diabetes. Otherwise doing well. Patient had a very difficult start to her with severe hyperemesis gravidarum. Otherwise she was doing well. Ultrasounds of showed small since the 20 week ultrasound. Four ultrasounds showed progressive growth in the 6% range. Last ultrasound showed decreased fluid with 6.5 AF 5. No other changes. Baby has been moving well. Discussion with patient about possible induction and we elected for induction due to these risks. No other changes. Feeling well. Started with Cytotec last night's been karina all night no other changes. No leaking fluid. Indications Indication for induction OB: other History of Present care: none and good care Dating criteria: LMP confirmed by 1st trimester US Ultrasounds: normal mid trimester US Abnormal ultrasound findings: Small Obstetrical complications: gestational diabetes Medical complications: none Preadmission Labs Blood type: O (+) positive -: Antibody screen: negative, GBS status: negative, HBsAG: negative, HIV: negative, HSV 1: negative, HSV 2: negative and RPR/VDLR: negative -: Chlamydia screen: not detected and Gonorrhea screen: not detected -: Rubella: not immune and Varicella: immune HCT: 35 HCAB: negative PAP: Normal 1 hr GTT: 144 Evaluation Evaluation Laboratory results: Laboratory Tests 04/27/19 04/27/19 21:00 21:00 WBC 13.6 H RBC 4.41 Hgb 11.4 L Hct 35.5 L MCV 80.6 MCH 25.8 L MCHC 32.0 RDW 14.7 Plt Count 181 Neut % (Auto) 73.0 Lymph % (Auto) 18.0 L [place] % (Auto) 8.0 Eos % (Auto) 0.7 L Baso % (Auto) 0.3 Neut # (Auto) 9900 H Lymph # (Auto) 2500 [place] # (Auto) 1100 H Eos # (Auto) 100 Baso # (Auto) 0 Blood Type O Positive Antibody Screen Negative PFSH Medical History (Updated 10/02/18 @ 00:00 by ) No active medical problems (Acute) Surgical History (Updated 09/17/18 @ 08:58 by Rosendo Echevarria MD) No pertinent past surgical history (Acute) Social History (Updated 09/17/18 @ 08:59 by Rosendo Echevarria MD) Smoking Status: Never smoker additional social history: No social or home issues. Social History (Updated 09/17/18 @ 08:59 by Rosendo Echevarria MD) Smoking Status: Never smoker additional social history: No social or home issues. Meds Home Medications and Allergies Home Medications Medication Instructions Recorded Confirmed Type promethazine 25 mg PO Q4-6H PRN #14 tab 09/29/18 Rx Allergies Allergy/AdvReac Type Severity Reaction Status Date / Time No Known Drug Allergies Allergy Verified 09/28/18 17:03 Review of Systems Review of Systems ROS Unobtainable: All systems reviewed & are unremarkable except as noted in HPI and below Exam Vital Signs (past 8 hours): Alert smiling female mildly fatigued no acute distress. Lungs are clear. Heart regular rate and rhythm without murmurs clicks rubs or gallops. Abdomen is gravid vertex by Elie's nontender. Extremities without abnormality or change sterile vaginal exam -1 vertex 170% in intact Objective Labs Result Diagrams: 04/27/19 21:00 Labs: Laboratory Results - last 24 hr 04/27/19 04/27/19 21:00 21:00 WBC 13.6 H RBC 4.41 Hgb 11.4 L Hct 35.5 L MCV 80.6 MCH 25.8 L MCHC 32.0 RDW 14.7 Plt Count 181 Neut % (Auto) 73.0 Lymph % (Auto) 18.0 L [place] % (Auto) 8.0 Eos % (Auto) 0.7 L Baso % (Auto) 0.3 Neut # (Auto) 9900 H Lymph # (Auto) 2500 [place] # (Auto) 1100 H Eos # (Auto) 100 Baso # (Auto) 0 Blood Type O Positive Antibody Screen Negative Assessment and Plan Assessment and Plan Assessment and Plan narrative: Thirty-nine week intrauterine with slight decrease in fluid SGA and history of diet-controlled gestational diabetes. Will watch sugars will proceed with induction wrist discussed with patient she understands re-evaluate 1 hour rupture when possible
--- NOTE | 2019-04-28 09:03 | PM.OBPNLAB ---
Date/Time Date Patient Seen: 04/28/19 Time Patient Seen: 09:03 Pain Control Pain control: tolerating well Comments: Increasingly uncomfortable Pelvic Exam Dilation (cm): 2 Effacement (%): 80 station: 0 Amniotic membrane status: Ruptured Comments: Attempted rupture. Unclear if was successful Contractions Contractions on admission: regular Contraction pattern: Regular Status status: Category l Assessment and Plan Assessment: induction ongoing Plan: continuous present management
[2019-04-28] MEDS: FENT 2MCG/ML BUPIV 0.125% EPI 200 MCG/100 ML PLAST..BAG 12 MCG EPIDURAL (10:50)
--- NOTE | 2019-04-28 12:09 | PM.OBPNLAB ---
Date/Time Date Patient Seen: 04/28/19 Time Patient Seen: 12:09 Pain Control Pain control: epidural Comments: Has pretty significant left-sided pain still Pelvic Exam Dilation (cm): 5 Effacement (%): 90 station: 0 Amniotic membrane status: Ruptured Contractions Pitocin rate (mU/min): 9 Contraction frequency (min): 2 Contraction pattern: Regular Contraction intensity: Strong/Firm Status status: Category l Assessment and Plan Assessment: induction ongoing Plan: continuous present management
--- NOTE | 2019-04-28 15:27 | PM.OBPRVD ---
 Events: Gestational Diabetes and Labor Induction Labor & Delivery Delivery date: 04/28/19 Intrapartal events: None Cervical ripening method: per misoprostal protocol Induction method: per pitocin protocol Delivery augmentation: rupture of membranes Delivery monitor: external FHT Route of delivery: Episiotomy description: None L&D Laceration Description: Periurethral - 2nd Degree and Vaginal - 2nd Degree Delivery repair: chromic Estimated blood loss (mL): 300 Complications: None Narrative: Patient was brought in last night and was approximately is used x2 doses. Second does produce pretty prolonged. If contractions through most of the night. Patient got minimal sleep. No other complications heart monitor was reactive throughout the night. Category 1. Pitocin was started in a.m.. At this point she was 1 cm. She progressed to 2 cm over the 1st 2 hours. Rupture of membranes was then undertaken without complications. heart monitor continued to be reactive. The rest of the for stage went well and actually quite quickly. Without significant change. Epidural was placed but was not highly effective. Patient had most of her pain sensations throughout most of the 1st and 2nd stage. Patient then began second-stage which was relatively rapid for a first-time . Patient did an excellent job of pushing and delivered over a second-degree left labial tear. Midline showed 2nd degree small vaginal tear just at the introitus. Baby's head was delivered with out significant complication. Nuchal cord x1. Shoulders were then delivered along with the rest of the baby and baby was transferred up on the abdomen. Initially was having some difficulty breathing in mouth and nose were cleared. No resuscitation was required. Apgars 8 and 9. Placenta delivered spontaneous intact 3 vessels. 1% lidocaine was then used to inject the left lateral labia and with running chromic subcuticular was closed. A 3 stitch series of running chromic locked was used to close the small second-degree tear in the vagina posteriorly. Patient tolerated well. Mother and infant were doing well. EBL 300 cc. All sponge instrument and needle counts were correct
[2019-04-28] MEDS: IBUPROFEN 600 MG TABLET PO (16:58)
[2019-04-28] MEDS: ACETAMINOPHEN 325 MG TABLET 650 MG PO (21:03)
[2019-04-28] MEDS: DERMOPLAST SPRAY 20% 60 ML 1 SPRAY TOP (21:04)
[2019-04-29] MEDS: ACETAMINOPHEN 325 MG TABLET 650 MG PO ×2 (03:40→10:27)
[2019-04-29] MEDS: IBUPROFEN 600 MG TABLET PO ×3 (07:46→20:24)
--- NOTE | 2019-04-29 10:15 | P.PNOB_ITS ---
Subjective - OB Subjective Patient comments: no complaints and pain well controlled baby status: doing well and nursing well feeding status: exclusively breast feeding Narrative: Feeling well this morning. Some pain but controlled with Tylenol and ibuprofen. No other complaints. Date Patient Seen: 04/29/19 Time Patient Seen: 10:16 Exam Vital Signs (past 8 hours): Alert female no acute distress lungs are clear. Heart regular rate and rhythm. Abdomen uterus is firm at umbilicus. Extremities without cyanosis clubbing or edema. No calf tenderness Objective Labs Result Diagrams: 04/27/19 21:00 Assessment & Plan Plan day: 1 plan OB: routine care Comments: Overall doing well. Expect discharge tomorrow. Work on breast- feeding today. Routine care. Routine medication discussed. Questions answered. control discussed. She is going to think about it. Angely questions if needed. Follow-up a.m.. Probable discharge. Time Spent With Patient Time: Total time spent is greater than 50% in coordination of care (as documented) at patient's floor/unit and/or counseling patient: Time with patient: 25 - 35 minutes
[2019-04-29] MEDS: DOCUSATE 250 MG CAPSULE PO (18:46)
[2019-04-30] MEDS: IBUPROFEN 600 MG TABLET PO ×2 (02:41→09:14)
--- NOTE | 2019-04-30 08:46 | P.DS_ITS ---
History of Present Illness History of Present Illness Date Patient Seen: 04/30/19 Time Patient Seen: 08:18 Chief complaint: Narrative: Patient is a 28-year-old primary breaths female with her 1st delivery he 6 lb 7 oz female with out major complications. Vaginal delivery mom's doing well without fevers chills a breast-feeding is improving although milk was not completely in yet no fevers no bleeding no neurologic change no edema has appointment set up for 2 days or 3 days from now with Dr. Davis in his clinic he will be on over the weekend and she can call sooner if there are problems. Discharge Providers Provider Date of admission: 04/27/19 18:50 Discharge Date: 04/30/19 Primary care physician: Rosendo Davis MD Consults: 04/28/19 15:22 Consult to Bullion Weigher Routine Comment: Discharge provider: Puma Cross MD Exam Narrative Exam Narrative: Alert oriented clear no significant edema no problems with red breast heart lungs vital signs old good PERRLA EOMs intact speech clear Lungs clear Breasts will bit to superficially tender but not fully engorged with no CT no mastitis Heart shows regular rate and rhythm with good blood pressure No significant or major edema Abdomen mildly tender but improving G uterine firmness. Neuro intact and symmetrical. Objective Labs Result Diagrams: 04/27/19 21:00 Discharge Plan Discharge Plan Patient Disposition: Home Discharge Med Rec/Prescriptions Prescriptions: No Action No Known Home Medications RF: 0 Follow up/Referrals: Rosendo Davis MD [Primary Care Provider] - Discharge Data Primary Care Provider: Rosendo Davis
[2019-04-30] MEDS: DOCUSATE 250 MG CAPSULE PO (09:15)
[2019-04-30 11:55] VITALS: BP 133/76; PULSE 103; RESP 16; TEMP 36.8
[2019-04-30 12:44] VITALS: BP 133/76; PULSE 103; RESP 16; TEMP 36.8
== END 2019-04-30 14:15 | disposition home or self-care (01) | DRG 807 ==
PROVIDERS: Admitting Provider Family Medicine; PCP Family Medicine; Visit Provider Family Medicine
DX: O24.420 Gestational diabetes mellitus in childbirth, diet controlled (principal); Z37.0 Single live birth; Z3A.39 39 weeks gestation of pregnancy; O70.1 Second degree perineal laceration during delivery; O69.81X0 Labor and delivery complicated by cord around neck, without compression, not applicable or unspecified
CPT/HCPCS: 01967; 59050; 85025; 86850; 86900; 86901; G0379; J2590